=== PATIENT | male | born 1960 | race Caucasian/White ===

== ENCOUNTER 2024-05-31 07:33 | Day surgery (SDC) | payer BC ==
[2024-05-26 12:44] VITALS: BMI 26.6
[~2024-05-31 07:33] MED LIST: ALPRAZolam 0.25 MG TAB PO PRN; ALPRAZolam 0.5 MG TAB PO PRN; NITROGLYCERIN SL TABS 0.4 MG TAB SUBLINGUAL PRN
[2024-05-31 07:51] VITALS: RESP 18; TEMP 98.1
[2024-05-31] MEDS: SODIUM CHLORIDE 0.9% 1,000 ML in EMPTY BAG 1 BAG IV SCH (07:52)
[2024-05-31] MEDS: IV FLUID CONTINUATION 1,000 ML IV ONE (07:53)
[2024-05-31] MEDS: ASPIRIN 325 MG TAB PO STA (07:54)
[2024-05-31 08:48] LABS: African American GFR (CKD) >90 (>60 ml/min/1.73 sqM); Anion Gap 7 mmol/L; Blood Urea Nitrogen 18 mg/dL (9-20); Calcium 9.6 mg/dL (8.4-10.2); Carbon Dioxide 32 mmol/L (22-30); Chloride 101 mmol/L (98-107); Glucose 98 mg/dL (74-99); Non-African American GFR(CKD) >90 (>60 ml/min/1.73 sqM); Sodium 140 mmol/L (137-145)
[2024-05-31 08:54] LABS: Basophils % (A) 0 %; Eosinophils % (A) 0 %; HGB 16.8 gm/dL (13.0-17.5); Lymphocytes # (A) 2.8 k/uL (1.0-4.8); Lymphocytes % (A) 40 %; MCH 33.3 pg (25.0-35.0); MCHC 34.3 g/dL (31.0-37.0); MCV 97.1 fL (80.0-100.0); Mean Platelet Volume 7.8; Monocytes # (A) 0.4 k/uL (0-1.0); Monocytes % (A) 5 %; Neutrophils # (A) 3.7 k/uL (1.3-7.7); Neutrophils % (A) 53 %; Platelet Count 264 k/uL (150-450); RBC 5.05 m/uL (4.30-5.90); RDW 14.1 % (11.5-15.5)
[2024-05-31 08:58] LABS: Potassium 3.9 mmol/L (3.5-5.1)
[2024-05-31] MEDS ORDERED: LIDOCAINE 1% INJ 10MG/ML (20 ML MDV) ONE (09:50)
[2024-05-31] MEDS ORDERED: HEPARIN SODIUM 1,000 UN/ML (10ML VL) ONE (09:51)
[2024-05-31] MEDS: HEPARIN SODIUM,PORCINE 10,000 UNIT in SODIUM CHLORIDE 0.9% 1,000 ML IRRIGATION PRN (09:51)
[2024-05-31] MEDS ORDERED: VERAPAMIL 2.5 MG/ML 2 ML AMP ONE (09:51)
[2024-05-31] MEDS: HEPARIN SODIUM,PORCINE (1 ML) 2,500 UNIT in SODIUM CHLORIDE 0.9% 250 ML IRRIGATION PRN (09:51)
[2024-05-31] MEDS ORDERED: fentaNYL (PF) 50 MCG/ML 2 ML AMP ONE (10:16)
[2024-05-31] MEDS: MIDAZOLAM 2 MG/2 ML VIAL IVP ONE (10:18)
[2024-05-31] MEDS: fentaNYL (PF) 50 MCG/ML 2 ML AMP IVP ONE (10:18)
[2024-05-31] MEDS: LIDOCAINE 1% INJ 10MG/ML (20 ML MDV) SQ ONE (10:19)
[2024-05-31] MEDS: VERAPAMIL SYRINGE (5 MG/10 ML) INTRAARTER ONE (10:20)
[2024-05-31] MEDS: HEPARIN SODIUM 1,000 UN/ML (10ML VL) IV ONE (10:23)
[2024-05-31] MEDS: IOPAMIDOL-370 100ML BTL INJ ONE (10:29)
[2024-05-31] MEDS ORDERED: RX INFO: IV CONTRAST WAS GIVEN 1 EACH MISC MISCELLANE PRN (10:29)
[2024-05-31] MEDS ORDERED: SODIUM CHLORIDE 0.9% 1,000 ML IV SCH (10:30)
--- NOTE | 2024-05-31 10:33 | P.PCN ---
Date of Procedure: 05/31/24 Operative Findings: CARDIAC CATHETERIZATION PERFORMING PHYSICIAN: Pawel Varner MD, RPVI PROCEDURE PERFORMED: 1. Selective right and left coronary angiogram 2. Left heart catheterization 3. Ultrasound-guided access of the right radial artery INDICATION: Symptomatic 63-year-old gentleman with abnormal myocardial perfusion imaging stress test COMPLICATION: None APPROACH: Right radial artery LEVEL OF SEDATION: Moderate with a sedation length of 9 minutes PROCEDURE DESCRIPTION: After obtaining an informed consent, the patient was brought to cardiac [facility]. Local anesthesia was performed using lidocaine subcutaneously. The right radial artery was cannulated using Seldinger technique, the guidewire passed easily, following that we advanced a 5-Bolivian sheath dilator assembly, the wire and dilator were removed and sheath was flushed. Following that, 2 mg of verapamil along with 5000 unit heparin were given. Selective right and left coronary angiogram using a 6-Bolivian JR4 and JL 3.5 catheters. Following that we did left heart catheterization using the JR4 catheter The procedure was completed there was no complication. SELECTIVE CORONARY ANGIOGRAM: The right coronary artery: Large-caliber vessel and a dominant vessel and angiographically normal Left main: Has mild disease in the ostium appears to be in the range of 20% The left circumflex: Large-caliber vessel nondominant vessel appears to be angiographically normal The left anterior descending artery: Large-caliber vessel and has mild disease in the proximal portion HEMODYNAMICS: The LVEDP was 18 mmHg with no significant gradient across aortic valve CONCLUSION: 1. 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 Mildly elevated left-sided filling pressure POSTPROCEDURE MANAGEMENT: Medical treatment
[2024-05-31 14:29] VITALS: BP 125/66; PULSE 66
== END 2024-05-31 14:31 | disposition home or self-care (01) ==
LOC: CATHCVL 07:33
PROVIDERS: ATTEND Internal Medicine Interventional Cardiology
DX: R94.39 Abnormal result of other cardiovascular function study (principal); I10 Essential (primary) hypertension; E78.5 Hyperlipidemia, unspecified; J44.9 Chronic obstructive pulmonary disease, unspecified; Z86.73 Personal history of transient ischemic attack (TIA), and cerebral infarction without residual deficits; Z85.820 Personal history of malignant melanoma of skin; Z79.51 Long term (current) use of inhaled steroids
CPT/HCPCS: 80048; 85025; 93458